=== PATIENT | male | born 1960 | race Caucasian/White ===

== ENCOUNTER 2017-07-24 22:58 | Emergency (ER) | payer BC ==
[2017-07-24] MEDS: HALOPERIDOL 5 MG INJ IM ×2 (23:22)
[2017-07-24] MEDS: LORAZEPAM 2 MG INJ IM (23:22)
[2017-07-25 00:25] LABS: ADD MAN DIFF? NO
[2017-07-25 00:27] LABS: WHITE BLOOD COUNT 9.3 10^3/ul (4.8-10.8)
[2017-07-25 00:27] LABS: BASOPHIL # 0.1 10^3/ul (0.0-0.1); BASOPHILS % 0.8 % (0.0-2.0); EOSINOPHILS # 0.1 10^3/ul (0.0-0.5); EOSINOPHILS % 1.1 % (0.0-7.0); HEMATOCRIT 45.5 % (42.0-52.0); LYMPHOCYTES # 1.3 10^3/ul (0.8-2.9); LYMPHOCYTES % 13.5 % (15.0-51.0); MEAN CORPUSCULAR HEMOGLOBIN 30.9 pg (29.0-33.0); MEAN CORPUSCULAR HGB CONC 35.2 g/dl (32.0-37.0); MEAN CORPUSCULAR VOLUME 87.8 fl (82.0-101.0); MEAN PLATELET VOLUME 10.2 fl (7.4-10.4); MONOCYTE # 0.8 10^3/ul (0.3-0.9); MONOCYTES % 8.4 % (0.0-11.0); NEUTROPHIL # 7.1 10^3/ul (1.6-7.5); NEUTROPHILS % 75.8 % (39.0-77.0); PLATELET COUNT 253 10^3/UL (140-415); RED BLOOD COUNT 5.18 10^6/ul (4.70-6.10); RED CELL DISTRIBUTION WIDTH 12.2 % (11.5-14.5)
[2017-07-25] MEDS: DIPHENHYDRAMINE 50 MG INJ IM (00:42)
[2017-07-25 00:44] LABS: ALANINE AMINOTRANSFERASE 21 IU/L (13-69); ALBUMIN 4.8 g/dl (3.3-4.9); ALBUMIN/GLOBULIN RATIO 1.45; ALKALINE PHOSPHATASE 88 IU/L (42-121); ANION GAP 19 (8-16); ASPARTATE AMINO TRANSFERASE 23 IU/L (15-46); BILIRUBIN,INDIRECT 0.3 mg/dl (0-1.1); BILIRUBIN,TOTAL 0.3 mg/dl (0.2-1.3); BLOOD UREA NITROGEN 15 mg/dl (7-20); CALCIUM 10.3 mg/dl (8.4-10.2); CARBON DIOXIDE 25 mmol/L (21-31); CHLORIDE 107 mmol/L (97-110); CREATININE 0.56 mg/dl (0.61-1.24); GLUCOSE 115 mg/dl (70-220); SODIUM 147 mmol/L (135-144); TOTAL PROTEIN 8.1 g/dl (6.1-8.1)
[2017-07-25] MEDS: OLANZAPINE 10 MG VIAL IM (01:08)
[2017-07-25 01:33] LABS: ACETAMINOPHEN < 10.0 ug/ml (10.0-30.0); ETHANOL < 10.0 mg/dl; SALICYLATE < 1.0 mg/dl (5.0-30.0)
[2017-07-25 01:38] LABS: ADD UMIC YES; UR ASCORBIC ACID NEGATIVE (NEGATIVE); UR BILIRUBIN (Dip) NEGATIVE (NEGATIVE); UR BLOOD (Dip) NEGATIVE (NEGATIVE); UR CLARITY CLEAR (CLEAR); UR COLOR YELLOW (YELLOW); UR GLUCOSE (Dip) NEGATIVE (NEGATIVE); UR KETONES (Dip) 2+ mg/dL (NEGATIVE); UR LEUKOCYTE ESTERASE (Dip) NEGATIVE Leu/ul (NEGATIVE); UR MUCUS MANY /HPF (NONE SEEN); UR NITRITE (Dip) NEGATIVE (NEGATIVE); UR RBC 2 /HPF (0-5); UR SPECIFIC GRAVITY (Dip) 1.026 (1.003-1.030); UR TOTAL PROTEIN (Dip) 1+ mg/dl (NEGATIVE); UR UROBILINOGEN (Dip) NEGATIVE (NEGATIVE); UR WBC 2 /HPF (0-5)
[2017-07-25 01:44] LABS: COCAINE Positive (NEGATIVE)
[2017-07-25 01:53] LABS: AMPHETAMINE/METHAMPHETAMINE Negative (NEGATIVE); BARBITURATES Negative (NEGATIVE); BENZODIAZEPINES Positive (NEGATIVE); CANNABINOIDS Positive (NEGATIVE); OPIATES Negative (NEGATIVE)
[2017-07-25] MEDS: HYDROCODONE/APAP (5/325) TAB PO (08:58)
== END 2017-07-25 12:00 | disposition home or self-care (01) ==
LOC: E/R 22:58
DX: R41.82 Altered mental status, unspecified (principal); F12.129 Cannabis abuse with intoxication, unspecified
CPT/HCPCS: 36415; 80053; 80306; 80307; 81001; 85025; 96372; 99284-25

== ENCOUNTER → 2018-10-25 | Emergency (ER) | payer BC ==
[2018-10-25] MEDS: SOD CHLORIDE 0.9% 1,000 ML IV (14:43)
== END | disposition home or self-care (01) ==
LOC: E/R 13:57
DX: T40.601A Poisoning by unspecified narcotics, accidental (unintentional), initial encounter (principal); R00.0 Tachycardia, unspecified
CPT/HCPCS: 99284; 99284-25